=== PATIENT | male | born 1955 | race Caucasian/White ===

== ENCOUNTER 2016-06-03 00:32 | Emergency (ER) | payer MEDICARE, OTHER ==
[2016-06-03] MEDS ORDERED: AMOXICILLIN TR/POT CLAVULANATE 500-125 MG TAB PO ONE (01:55)
[2016-06-03] MEDS ORDERED: IBUPROFEN 800 MG TABLET PO ONE (01:55)
--- NOTE | 2016-06-03 02:00 | ER Document Report ---
ED General - General Chief Complaint: Ear Pain Stated Complaint: EARACHE Notes: Patient is a 60-year-old male without past medical history who presents with 3- 4 hours of severe, sharp, constant pain in the bilateral ears. He tried ibuprofen at home with minimal improvement of the pain. Nothing worsens the pain. He denies any history of similar symptoms in the past. He has not seen his primary care doctor regarding today's concerns. Came to the emergency department because he could not sleep secondary to the pain. He denies any assisted headache, neck pain, shortness of breath, fever or vomiting TRAVEL OUTSIDE OF THE [place] IN LAST 30 DAYS: No - Related Data Allergies/Adverse Reactions: No Known Allergies Allergy (Verified 06/03/16 00:47) Past Medical History - General Information source: Patient - Social History Smoking Status: Current Every Day Smoker Chew tobacco use (# tins/day): No Frequency of alcohol use: Rare Drug Abuse: None Family History: Reviewed & Not Pertinent Patient has suicidal ideation: No Patient has homicidal ideation: No - Past Medical History Cardiac Medical History: Reports: Hx Hypertension Denies: Hx Coronary Artery Disease, Hx Heart Attack Pulmonary Medical History: Denies: Hx Asthma, Hx Bronchitis, Hx COPD, Hx Pneumonia Neurological Medical History: Denies: Hx Cerebrovascular Accident, Hx Seizures Renal/ Medical History: Denies: Hx Peritoneal Dialysis Musculoskeltal Medical History: Reports Hx Arthritis Psychiatric Medical History: Reports: Hx Depression Past Surgical History: Reports: Hx Cholecystectomy, Hx Orthopedic Surgery - knee. Denies: Hx Pacemaker - Immunizations Hx Diphtheria, Pertussis, Tetanus Vaccination: Yes Review of Systems - Review of Systems Notes: Constitutional: Negative for fever. HENT: Negative for sore throat. Positive for bilateral ear pain Eyes: Negative for visual changes. Cardiovascular: Negative for chest pain. Respiratory: Negative for shortness of breath. Gastrointestinal: Negative for abdominal pain, vomiting or diarrhea. Genitourinary: Negative for dysuria. Musculoskeletal: Negative for back pain. Skin: Negative for rash. Neurological: Negative for headaches, weakness or numbness. 10 point ROS negative except as marked above and in HPI. Physical Exam - Vital signs Vitals: Temp Pulse Resp BP Pulse Ox 98.2 F 93 20 133/102 H 98 06/03/16 00:42 06/03/16 00:42 06/03/16 00:42 06/03/16 00:42 06/03/16 00:42 Interpretation: Normal Notes: PHYSICAL EXAMINATION: GENERAL: Well-appearing, well-nourished and in no acute distress. HEAD: Atraumatic, normocephalic. EYES: Pupils equal round and reactive to light, extraocular movements intact, sclera anicteric, conjunctiva are normal. ENT: nares patent, oropharynx clear without exudates. TMs with bulging and erythema bilaterally without effusion. Moist mucous membranes. NECK: Normal range of motion, supple without lymphadenopathy LUNGS: Breath sounds clear to auscultation bilaterally and equal. No wheezes rales or rhonchi. HEART: Regular rate and rhythm without murmurs ABDOMEN: Soft, nontender, normoactive bowel sounds. No guarding, no rebound. No masses appreciated. EXTREMITIES: Normal range of motion, no pitting or edema. No cyanosis. NEUROLOGICAL: No focal neurological deficits. Moves all extremities spontaneously and on command. PSYCH: Normal mood, normal affect. SKIN: Warm, Dry, normal turgor, no rashes or lesions noted. Course - Re-evaluation Re-evalutation: 06/03/16 01:56 Patient presents with bilateral otitis media on exam. The bilateral ears are erythematous, bulging without an obvious. Lung diffusion. Patient also has pressure over the bilateral maxillary sinuses. Presentation concerning for likely viral etiology given bilateral nature and absence of a purulent effusion. However, given the degree of patient's pain and the degree of bulging on exam, will proceed with initiation of Augmentin for 10 days. I have recommended NSAIDs for pain control. Patient does not have any headache, neck pain, altered mental status or abnormal vital signs to suggest an acute meningitis, encephalitis.At this time will discharge with return precautions and follow-up recommendations. Verbal discharge instructions given a the bedside and opportunity for questions given. Medication warnings reviewed. Patient is in agreement with this plan and has verbalized understanding of return precautions and the need for primary care follow-up in the next 24-72 hours. - Vital Signs Vital signs: Temp Pulse Resp BP Pulse Ox 98.2 F 94 20 133/102 H 98 06/03/16 00:43 06/03/16 00:43 06/03/16 00:43 06/03/16 00:43 06/03/16 00:43 Discharge - Discharge Clinical Impression: Bilateral otitis media Qualifiers: Otitis media type: unspecified nonsuppurative Qualified Code(s): H65.93 - Unspecified nonsuppurative otitis media, bilateral Condition: Good Disposition: HOME, SELF-CARE Additional Instructions: Please take the antibiotics as prescribed. Take ibuprofen 600 mg every 6 hours as needed for pain in your ears. Follow up with your primary care doctor in the next 1-2 days. Return for worsening pain, fever, passing out, difficulty swallowing or breathing, headache, or confusion. Please also return for any other symptoms that are worrisome to you. Prescriptions: Amox Tr/Potassium Clavulanate [Augmentin 875-125 Tablet] 1 tab PO BID 10 Days
[2016-06-03 02:37] VITALS: BP 129/88
== END 2016-06-03 02:31 | disposition home or self-care (01) ==
LOC: ER 00:32
DX: H65.93 Unspecified nonsuppurative otitis media, bilateral (principal); H92.03 Otalgia, bilateral; F17.200 Nicotine dependence, unspecified, uncomplicated; I10 Essential (primary) hypertension; J34.89 Other specified disorders of nose and nasal sinuses
CPT/HCPCS: 99282; A9270 ×2

== ENCOUNTER 2016-12-06 08:15 | Emergency (ER) | payer MEDICARE, OTHER ==
[2016-12-06] MEDS ORDERED: LIDOCAINE 1% INJ-PF (10 MG/ML) 30 ML SDV INJ ONE ×2 (09:12)
[2016-12-06] MEDS ORDERED: CEFTRIAXONE INJ 1000 MG VIAL IM ONE (09:12)
[2016-12-06] MEDS ORDERED: OXYCODONE-ACETAMINOPHEN 5-325 MG TABLET PO ONE (09:12)
--- NOTE | 2016-12-06 10:50 | ER Document Report ---
ED Skin Rash/Insect Bite/Abscs - General Chief Complaint: Abscess Stated Complaint: SKIN PROBLEM/RIGHT ARM Time Seen by Provider: 12/06/16 09:06 Mode of Arrival: Ambulatory Information source: Patient Notes: Patient is a 61-year-old male who presents to the ER today for very large abscess to the right forearm 3 days. Patient denies any history of MRSA. He denies any fevers or chills, drainage from the area. He states it has gotten very large, swollen and tender over the past 3 days and that he has a very large area of redness around it leading of the forearm. TRAVEL OUTSIDE OF THE [place] IN LAST 30 DAYS: No - Related Data Allergies/Adverse Reactions: No Known Allergies Allergy (Verified 12/06/16 09:32) Past Medical History - General Information source: Patient - Social History Smoking Status: Current Every Day Smoker Frequency of alcohol use: None Drug Abuse: Cocaine, Heroin, Marijuana, Methamphetamine, Other Family History: Reviewed & Not Pertinent Patient has suicidal ideation: No Patient has homicidal ideation: No - Past Medical History Cardiac Medical History: Reports: Hx Hypertension Denies: Hx Coronary Artery Disease, Hx Heart Attack Pulmonary Medical History: Denies: Hx Asthma, Hx Bronchitis, Hx COPD, Hx Pneumonia Neurological Medical History: Denies: Hx Cerebrovascular Accident, Hx Seizures Renal/ Medical History: Denies: Hx Peritoneal Dialysis Musculoskeltal Medical History: Reports Hx Arthritis Psychiatric Medical History: Reports: Hx Depression Past Surgical History: Reports: Hx Cholecystectomy, Hx Orthopedic Surgery - knee. Denies: Hx Pacemaker - Immunizations Hx Diphtheria, Pertussis, Tetanus Vaccination: Yes Review of Systems - Review of Systems Constitutional: No symptoms reported EENT: No symptoms reported Cardiovascular: No symptoms reported Respiratory: No symptoms reported Gastrointestinal: No symptoms reported Genitourinary: No symptoms reported Male Genitourinary: No symptoms reported Musculoskeletal: No symptoms reported Skin: See HPI Hematologic/Lymphatic: No symptoms reported Neurological/Psychological: No symptoms reported Physical Exam - Vital signs Vitals: Temp Pulse Resp BP Pulse Ox 98.1 F 88 16 128/93 H 100 12/06/16 08:18 12/06/16 08:18 12/06/16 08:18 12/06/16 08:18 12/06/16 08:18 - Notes Notes: PHYSICAL EXAMINATION: GENERAL: obviously uncomfortable holding right arm, but not toxic appearing and in no acute distress. HEAD: Atraumatic, normocephalic. EYES: Pupils equal round and reactive to light, extraocular movements intact, sclera anicteric, conjunctiva are normal. NECK: Normal range of motion, supple without lymphadenopathy LUNGS: CTAB and equal. No wheezes rales or rhonchi. HEART: Regular rate and rhythm without murmurs ABDOMEN: Soft, no tenderness. No guarding, no rebound BACK: no vertebral tenderness, normal ROM GI/: no CVA tenderness EXTREMITIES: Normal range of motion, no pitting edema. No cyanosis. NEUROLOGICAL: Cranial nerves grossly intact. Normal sensory/motor exams. PSYCH: Normal mood, normal affect. SKIN: Warm, Dry, normal turgor, large fluctuant abscess to right volar forearm, approximately 4cm in diameter with tenderness to palpation and erythema approximately 7cm by 5 cm surrounding Course - Re-evaluation Re-evalutation: 12/06/16 12:06 abscess incised and drained, culture pending. pt placed on bactrim and given pain medication. - Vital Signs Vital signs: Temp Pulse Resp BP Pulse Ox 98.9 F 95 20 117/81 96 12/06/16 10:56 12/06/16 10:56 12/06/16 10:56 12/06/16 10:56 12/06/16 10:56 Procedures - Incision and Drainage Right Distal Arm Time completed: 11:00 Type: Simple Anesthetic type: 1% Lidocaine mL's of anesthetic: 8 Blade size: 11 I&D procedure: Betadine prep applied Incision Method: Incision made by scalpel Amount/type of drainage: approximately a cup of pus, and blood Discharge - Discharge Clinical Impression: Abscess Condition: Stable Disposition: HOME, SELF-CARE Instructions: Abscess ([facility]), Post Incision and Drainage, Trimethoprim-Sulfa ( [facility]) Additional Instructions: Return immediately for any new or worsening symptoms. Follow up with primary care provider, call tomorrow to make followup appointment. Prescriptions: Oxycodone HCl/Acetaminophen [Percocet 5-325 mg Tablet] 1 tab PO Q4 PRN #10 tab PRN Reason: Sulfamethoxazole/Trimethoprim [Bactrim Ds Tablet] 1 each PO BID #20 tablet
[2016-12-06 10:57] VITALS: BP 117/81
== END 2016-12-06 10:59 | disposition home or self-care (01) ==
LOC: ER 08:15
PROC: 0H9DXZZ Drainage of Right Lower Arm Skin, External Approach (ICD-10-PCS; principal; 2016-12-06)
DX: L02.413 Cutaneous abscess of right upper limb (principal); F17.200 Nicotine dependence, unspecified, uncomplicated; I10 Essential (primary) hypertension
CPT/HCPCS: 99283; 96372; 87070; 87205; 87075; 87077; 10060; J3490; A9270; J0696